=== PATIENT | male | born 2000 | race Caucasian/White ===

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

== ENCOUNTER 2019-06-07 21:27 | Emergency (ER) | payer MEDICAID ==
[~2019-06-07] VITALS: Ht 185.4 cm; Wt 77.6 kg
[2019-06-07 21:35] VITALS: Ht 185.4 cm; Wt 77.6 kg
[2019-06-07 23:42] VITALS: BP 134/73
== END 2019-06-07 23:42 | disposition home or self-care (01) ==
LOC: ED 21:27
DX: S02.2XXA Fracture of nasal bones, initial encounter for closed fracture (principal); W50.0XXA Accidental hit or strike by another person, initial encounter; Y93.67 Activity, basketball; Y92.310 Basketball court as the place of occurrence of the external cause; Y99.8 Other external cause status